=== PATIENT | male | born 1950 | race Caucasian/White ===

== ENCOUNTER → 2017-05-20 10:46 | Outpatient (CLI) | payer BC, MEDICARE, SELFPAY ==
--- NOTE | 2017-05-20 10:59 | XR_ITS ---
EXAM: XR lumbar spine min 4V HISTORY: ITS.REASON: RT SIDE LBP, NO INJURY X 2WEEKS ORDERING PHYSICIAN: Referral Provider, PATIENT AGE: 66 years COMPARISON: None FINDINGS: There is mild multilevel lumbar spondylosis with mild endplate osteophytes at multiple levels from T12 to L1 3 and minimal retrolisthesis of L1 on L2, L2 on L3, and L3 on L4 of approximately 3 mm each. Facet arthritic changes are present from L3 to S1. No fracture or dislocation. No lytic or blastic change. Moderate facet hypertrophic changes are present on the right at L4-L5 and on the left at L5-S1. There may be canal stenosis at L3-L4 L4-5 and L5-S1. This may be better evaluated with MRI warranted. IMPRESSION: Multilevel lumbar spondylosis with osteophytosis and facet arthritic changes as described above. Possible canal stenosis. MRI may be of further value if clinically warranted.
== END ==
PROVIDERS: PCP Family Medicine; Visit Provider Family Medicine
DX: M54.5 Low back pain (principal)
CPT/HCPCS: 72110

== ENCOUNTER → 2017-06-10 10:54 | Outpatient (CLI) | payer BC, MEDICARE, SELFPAY ==
--- NOTE | 2017-06-10 11:22 | XR_ITS ---
XR chest 2V HISTORY: ITS.REASON: HTN ORDERING PHYSICIAN: Colton Mills MD PATIENT AGE: 66 years COMPARISON: None available FINDINGS: The cardiomediastinal silhouette and pulmonary vascularity are within normal limits. The lungs are clear without infiltrates, suspicious nodules, or pleural effusions. No acute bony abnormalities. IMPRESSION: Negative chest, no acute finding
== END ==
PROVIDERS: PCP Family Medicine; Visit Provider Family Medicine
DX: Z01.818 Encounter for other preprocedural examination (principal)
CPT/HCPCS: 71046; 93005